=== PATIENT | female | born 1955 | race Hispanic/Latino ===

== ENCOUNTER → 2021-01-29 | Outpatient (CLI) | payer OTHER | END | disposition home or self-care (01) | LOC: OIH 13:19 | PROVIDERS: ATTEND Internal Medicine | DX: Z13.6 Encounter for screening for cardiovascular disorders (principal) | CPT/HCPCS: 75571 ==

== ENCOUNTER 2024-04-01 06:14 | Inpatient (IN) | payer MEDICARE, OTHER ==
[~2024-04-01] VITALS: Ht 165.1 cm; Wt 92.1 kg
[2024-04-01] MEDS: MAG/ALUM/SIMETH 30 ML UDCUP PO ONE (07:15)
[2024-04-01] MEDS: DICYCLOMINE HCL 10 MG/5 ML ML PO ONE (07:15)
[2024-04-01] MEDS: LIDOCAINE HCL 2% VISCOUS 15 ML UDCUP PO ONE (07:15)
[2024-04-01] MEDS: ONDANSETRON 4MG INJ IVP ONE (07:15)
[2024-04-01] MEDS: FAMOTIDINE 20MG VIAL IV ONE (07:15)
[2024-04-01 07:24] LABS: APPEARANCE,URINE CLEAR (CLEAR); BILIRUBIN,URINE NEGATIVE (NEGATIVE); COLOR,URINE LIGHT-YELLOW (YELLOW); GLUCOSE, URINE (UA) NEGATIVE (NEGATIVE); KETONES,URINE 60 mg/dL (NEGATIVE); LEUKOCYTE ESTERASE ,URINE NEGATIVE Leu/uL (NEGATIVE); NITRATE,URINE NEGATIVE (NEGATIVE); OCCULT BLOOD,URINE NEGATIVE (NEGATIVE); PROTEIN,URINE 10 mg/dL (NEGATIVE); UROBILINOGEN,URINE 0.2 mg/dL (0.2-1.0)
[2024-04-01 07:35] LABS: ADD UA MICROSCOPIC YES
[2024-04-01 07:43] LABS: MUCUS,URINE RARE LPF (None Seen); SQUAMOUS EPITHELIAL CELL,UR FEW /HPF (0-2)
[2024-04-01 07:53] LABS: BASOPHILS # (AUTO) 0.03 K/uL (0.00-0.20); BASOPHILS % (AUTO) 0.3 % (0.0-5.0); EOSINOPHILS # (AUTO) 0.01 K/uL (0.00-0.70); EOSINOPHILS % (AUTO) 0.1 % (0.0-8.0); HEMATOCRIT 39.3 % (36-48); IMMATURE GRANULOCYTE ABSOLUTE 0.04 K/uL (0-1); LYMPHOCYTES # (AUTO) 1.1 K/uL (1.0-4.8); LYMPHOCYTES % (AUTO) 9.6 % (21.0-51.0); MEAN CORPUSCULAR HEMOGLOBIN 31.1 pg (27.0-33.0); MEAN CORPUSCULAR HGB CONC 33.6 g/dL (32.0-36.0); MEAN CORPUSCULAR VOLUME 92.5 fL (79-99); MONOCYTES # (AUTO) 0.3 K/uL (0.1-1.0); MONOCYTES % (AUTO) 3.1 % (3.0-13.0); NEUTROPHILS # (AUTO) 9.5 K/uL (1.8-7.7); NEUTROPHILS % (AUTO) 86.5 % (40.0-77.0); PLATELET COUNT (AUTO) 322 K/uL (130-400); RED BLOOD CELL COUNT(AUTO) 4.25 MIL/uL (4.00-5.50); RED CELL DISTRIBUTION WIDTH 13.2 % (11.0-15.5); WHITE BLOOD COUNT (AUTO) 10.9 K/uL (4.8-10.8)
[2024-04-01] MEDS: KETOROLAC 15MG/ML VIAL (15MG/ML) IM ONE (07:53)
[2024-04-01 08:07] LABS: ALBUMIN 3.7 g/dL (3.5-5.0); BILIRUBIN,TOTAL 0.4 mg/dL (0.2-1.0); CREATININE 0.9 mg/dL (0.5-1.0); POTASSIUM 3.7 mmol/L (3.5-5.1); TOTAL PROTEIN, SERUM 7.5 g/dL (6.0-8.3)
[2024-04-01 08:59] LABS: COVID19 (SARS ANTIGEN RAPID) PRESUMPTIVE NEGATIVE (NEGATIVE); INFLUENZA TYPE A Negative For Type A (NEGATIVE); INFLUENZA TYPE B Negative For Type B (NEGATIVE)
[2024-04-01] MEDS ORDERED: IOHEXOL-350 75 ML VIAL IV ONE (09:37)
[2024-04-01] MEDS: UNASYN 1.5GM+NS 100ML IV ONE (11:45)
[2024-04-01] MEDS: KETOROLAC 15MG/ML VIAL (15MG/ML) IV ONE (19:46)
[2024-04-01] MEDS: LACTATED RINGERS 1000ML 1,000 ML IV SCH (20:05)
[2024-04-01] MEDS ORDERED: AMP/SULBAC 1.5GM+NS 100ML 100 ML IV SCH (21:30)
[2024-04-01] MEDS: 0.9%NACL 1000ML 1,000 ML IV SCH (22:09)
[2024-04-01 22:47] VITALS: O2SAT 96
[2024-04-01 23:00] VITALS: BP 111/90; PULSE 88; RESP 19
[2024-04-01] MEDS ORDERED: FLUT15.845 NS (23:46)
[2024-04-01] MEDS ORDERED: LOSA50TA64 PO (23:46)
[2024-04-01] MEDS ORDERED: LINA72CA PO (23:46)
[2024-04-01] MEDS ORDERED: CETI10TA57 PO (23:46)
[2024-04-02] VITALS (7 sets, daily range): BP systolic 102–146; BP diastolic 47–67; PULSE 69–85; RESP 16–20; O2SAT 93–97
[2024-04-02] MEDS: MORPHINE 2 MG SYG IV PRN (05:40)
[2024-04-02 05:43] LABS: BASOPHILS # (AUTO) 0.04 K/uL (0.00-0.20); BASOPHILS % (AUTO) 0.3 % (0.0-5.0); EOSINOPHILS # (AUTO) 0.05 K/uL (0.00-0.70); EOSINOPHILS % (AUTO) 0.4 % (0.0-8.0); HEMATOCRIT 35.9 % (36-48); IMMATURE GRANULOCYTE ABSOLUTE 0.06 K/uL (0-1); LYMPHOCYTES # (AUTO) 1.3 K/uL (1.0-4.8); MEAN CORPUSCULAR HEMOGLOBIN 30.5 pg (27.0-33.0); MEAN CORPUSCULAR HGB CONC 32.6 g/dL (32.0-36.0); MEAN CORPUSCULAR VOLUME 93.5 fL (79-99); MONOCYTES # (AUTO) 1.4 K/uL (0.1-1.0); MONOCYTES % (AUTO) 10.9 % (3.0-13.0); NEUTROPHILS # (AUTO) 9.9 K/uL (1.8-7.7); NEUTROPHILS % (AUTO) 77.9 % (40.0-77.0); PLATELET COUNT (AUTO) 273 K/uL (130-400); RED BLOOD CELL COUNT(AUTO) 3.84 MIL/uL (4.00-5.50); RED CELL DISTRIBUTION WIDTH 13.7 % (11.0-15.5); WHITE BLOOD COUNT (AUTO) 12.6 K/uL (4.8-10.8)
[2024-04-02 05:53] LABS: INR 1.08 (0.85-1.15); PROTHROMBIN TIME 11.6 SEC (9.6-11.6)
[2024-04-02 05:54] LABS: PARTIAL THROMBOPLASTIN TIME 30.3 SEC (26.3-35.5)
[2024-04-02 05:59] LABS: ALBUMIN 2.9 g/dL (3.5-5.0); BILIRUBIN,TOTAL 0.8 mg/dL (0.2-1.0); CREATININE 1.1 mg/dL (0.5-1.0); MAGNESIUM 1.6 mg/dL (1.80-2.40); POTASSIUM 3.6 mmol/L (3.5-5.1); TOTAL PROTEIN, SERUM 6.3 g/dL (6.0-8.3)
[2024-04-02 06:05] LABS: HEMOGLOBIN A1C 5.9 % (4.0-6.0)
[2024-04-02] MEDS: KETOROLAC 15MG/ML VIAL (15MG/ML) IV PRN (06:33)
[2024-04-02] MEDS: AMP/SULBAC 1.5GM+NS 100ML 100 ML IV SCH (06:34)
[2024-04-02] MEDS: FLUTICASONE PROPIONATE 50MCG/SPRAY 16 GM BOTTLE EN SCH (09:00)
[2024-04-02] MEDS: LOSARTAN 50 MG TABLET PO SCH (09:00)
[2024-04-02] MEDS ORDERED: NON-FORMULARY MEDICATION 1 EACH (Fluticasone Propionate 15.8 ML) NS SCH (09:00)
[2024-04-02] MEDS: FAMOTIDINE 20MG VIAL IV SCH (10:09)
[2024-04-02] MEDS: KETOROLAC 15MG/ML VIAL (15MG/ML) IV ONE (11:11)
[2024-04-02] MEDS: HYDROMORPHONE 0.5 MG SYG (0.5MG/0.5ML) IVP ONE (13:05)
[2024-04-02] MEDS: HYDROMORPHONE 0.5 MG SYG (0.5MG/0.5ML) IVP PRN (19:03)
[2024-04-02] MEDS: MAGNESIUM 2GM PREMIX 50ML 50 ML IV SCH (21:35)
[2024-04-03] VITALS (28 sets, daily range): BP systolic 128–169; BP diastolic 56–88; PULSE 58–104; RESP 15–20; O2SAT 94–97
[2024-04-03] MEDS: ONDANSETRON 4MG INJ IVP PRN (01:46)
[2024-04-03 06:05] LABS: BASOPHILS # (AUTO) 0.06 K/uL (0.00-0.20); BASOPHILS % (AUTO) 0.3 % (0.0-5.0); EOSINOPHILS # (AUTO) 0.01 K/uL (0.00-0.70); EOSINOPHILS % (AUTO) 0.1 % (0.0-8.0); HEMATOCRIT 38.4 % (36-48); IMMATURE GRANULOCYTE ABSOLUTE 0.14 K/uL (0-1); LYMPHOCYTES # (AUTO) 2.4 K/uL (1.0-4.8); LYMPHOCYTES % (AUTO) 13.4 % (21.0-51.0); MEAN CORPUSCULAR HGB CONC 32.3 g/dL (32.0-36.0); MONOCYTES # (AUTO) 1.7 K/uL (0.1-1.0); MONOCYTES % (AUTO) 9.3 % (3.0-13.0); NEUTROPHILS # (AUTO) 13.9 K/uL (1.8-7.7); NEUTROPHILS % (AUTO) 76.1 % (40.0-77.0); PLATELET COUNT (AUTO) 259 K/uL (130-400); RED CELL DISTRIBUTION WIDTH 13.7 % (11.0-15.5); WHITE BLOOD COUNT (AUTO) 18.2 K/uL (4.8-10.8)
[2024-04-03 06:21] LABS: ALBUMIN 2.8 g/dL (3.5-5.0); BILIRUBIN,TOTAL 0.6 mg/dL (0.2-1.0); MAGNESIUM 2.2 mg/dL (1.80-2.40); POTASSIUM 3.8 mmol/L (3.5-5.1)
[2024-04-03] MEDS ORDERED: MIDAZOLAM HCL 1 MG/ML 2ML VIAL ONE (10:24)
[2024-04-03] MEDS ORDERED: FENTANYL CITRATE PF 50 MCG/1 ML 2ML VIAL ONE ×2 (10:24→11:14)
[2024-04-03] MEDS ORDERED: PROPOFOL 10 MG/ML 20ML VIAL IV ONE (10:36)
[2024-04-03] MEDS ORDERED: ROCURONIUM BROMIDE 10MG/1ML 5ML VL ONE (10:37)
[2024-04-03] MEDS ORDERED: ONDANSETRON 4MG INJ ONE (10:37)
[2024-04-03] MEDS: ACETAMINOPHEN 1,000 MG/100 ML VIAL IV ONE (10:46)
[2024-04-03] MEDS ORDERED: BUPIVACAINE/PF 0.5% 30ML VIAL ONE (11:01)
[2024-04-03] MEDS ORDERED: DEXAMETHASONE SOD PHOSPHATE 10MG/ML 1ML VIAL ONE (11:24)
[2024-04-03] MEDS: BUPIVACAINE/PF 0.5% 30ML VIAL INJ ONE (11:29)
[2024-04-03] MEDS ORDERED: GLYCOPYRROLATE 0.2 MG/ML 5 ML VIAL ONE (13:03)
[2024-04-03] MEDS ORDERED: NEOSTIGMINE METHYLSULFATE 1MG/ML IV ONE (13:04)
[2024-04-03 13:28] LABS: HEMATOCRIT 34.6 % (36-48)
[2024-04-03] MEDS: MEPERIDINE-PF 25 MG/ML SYG ONE ×2 (13:29→13:48)
[2024-04-03] MEDS: KETOROLAC 30MG VIAL (30MG/ML) ONE (13:47)
[2024-04-03] MEDS: KETOROLAC 15MG/ML VIAL (15MG/ML) IV PRN (22:38)
[2024-04-04] MEDS: KETOROLAC 15MG/ML VIAL (15MG/ML) IV ONE (00:54)
[2024-04-04] MEDS: BENZOCAINE/MENTH/CETYLPYRD CL 1 EACH LOZENGE MM PRN (02:07)
[2024-04-04] MEDS: SIMETHICONE 80 MG TAB.CHEW PO SCH (03:06)
[2024-04-04] MEDS: LIDOCAINE 5% TOPICAL PATCH TP ONE (03:13)
[2024-04-04 03:59] VITALS: BP 146/66; PULSE 79; RESP 16
[2024-04-04 05:38] LABS: HEMATOCRIT 30.8 % (36-48); MEAN CORPUSCULAR HEMOGLOBIN 30.3 pg (27.0-33.0); MEAN CORPUSCULAR HGB CONC 31.8 g/dL (32.0-36.0); MEAN CORPUSCULAR VOLUME 95.4 fL (79-99); RED BLOOD CELL COUNT(AUTO) 3.23 MIL/uL (4.00-5.50); RED CELL DISTRIBUTION WIDTH 13.6 % (11.0-15.5); WHITE BLOOD COUNT (AUTO) 12.4 K/uL (4.8-10.8)
[2024-04-04 05:58] LABS: ALBUMIN 2.1 g/dL (3.5-5.0); BILIRUBIN,TOTAL 0.7 mg/dL (0.2-1.0); CREATININE 0.9 mg/dL (0.5-1.0); MAGNESIUM 1.6 mg/dL (1.80-2.40); POTASSIUM 3.8 mmol/L (3.5-5.1); TOTAL PROTEIN, SERUM 5.6 g/dL (6.0-8.3)
[2024-04-04 07:52] VITALS: BP 140/75; PULSE 99; RESP 18
[2024-04-04 08:00] VITALS: O2SAT 97
[2024-04-04] MEDS: IBUPROFEN 600 MG TABLET PO ONE (10:41)
== END 2024-04-04 11:45 | disposition home or self-care (01) | DRG 419 ==
LOC: EDH 06:14 → EDHIP 21:30 → 3BH 22:42
PROVIDERS: ADMIT Hospitalist; ATTEND Hospitalist
PROC: 0FT44ZZ Resection of Gallbladder, Percutaneous Endoscopic Approach (ICD-10-PCS; principal; 2024-04-03 11:00)
DX: K80.00 Calculus of gallbladder with acute cholecystitis without obstruction (principal); J32.9 Chronic sinusitis, unspecified; F41.0 Panic disorder [episodic paroxysmal anxiety]; I10 Essential (primary) hypertension; E66.9 Obesity, unspecified; K59.00 Constipation, unspecified; K82.8 Other specified diseases of gallbladder; R73.9 Hyperglycemia, unspecified; E83.42 Hypomagnesemia; Z68.33 Body mass index [BMI] 33.0-33.9, adult
CPT/HCPCS: 36415; 74178; 76705; 78227; 80053; 81001; 83036; 83690; 83735; 85014; 85018; 85025; 85027; 85610; 85730; 86850; 86900; 86901; 86923; 87040; 87426; 87804; 93005; A9537; G0378; J0295; J1100; J1170; J1885; J2175; J2250; J2270; J2405; J2704; J2710; J3010; J3475; J3490; J7030; J7120; Q9967; A4215; A4600; A4649; A4930; A6206; J0665